=== PATIENT | female | born 1990 | race Two or more races ===

== ENCOUNTER 2016-11-21 10:55 | Outpatient (CLI) | payer MEDICAID ==
[2016-11-21 11:37] VITALS: BMI 31.1
[2016-11-21 12:03] LABS: SPECIFIC GRAVITY 1.015 (1.001-1.030); URINE BILIRUBIN NEGATIVE (NEGATIVE); URINE BLOOD 4+ (NEGATIVE); URINE GLUCOSE (UA) NEGATIVE (NEGATIVE); URINE LEUKOCYTE ESTERASE 2+ (NEGATIVE); URINE NITRITE NEGATIVE (NEGATIVE); URINE PROTEIN 1+ (NEGATIVE); URINE UROBILINOGEN NORMAL (0-1 mg/dl)
[2016-11-21 12:08] LABS: URINE APPEARANCE HAZY; URINE COLOR YELLOW
[2016-11-21 12:11] LABS: URINE AMORPHOUS SEDIMENT 3+; URINE BACTERIA 3+; URINE EPITHELIAL CELLS 20-30 /hpf
[2016-11-21] MEDS ORDERED: LIDOCAINE 1% IM SCH ×2 (13:00)
[2016-11-21] MEDS ORDERED: CEFTRIAXONE 1 GM IM SCH ×2 (13:00)
== END 2016-11-21 13:39 | disposition home or self-care (01) ==
LOC: FBCOUT 10:55 → ED 10:55 → EDSTATUS 11:05 → FBC 11:07 → FBCOUT 11:07
PROVIDERS: ATTEND Family Medicine
DX: O26.899 Other specified pregnancy related conditions, unspecified trimester (principal); M54.9 Dorsalgia, unspecified; R10.9 Unspecified abdominal pain; M25.559 Pain in unspecified hip; Z3A.00 Weeks of gestation of pregnancy not specified
CPT/HCPCS: 96372; 81001; 59050; 81002; J0696; G0463

== ENCOUNTER 2017-01-13 01:23 | Outpatient (CLI) | payer MEDICAID ==
[2017-01-13 01:45] LABS: SPECIFIC GRAVITY 1.015 (1.001-1.030); URINE BILIRUBIN NEGATIVE (NEGATIVE); URINE BLOOD NEGATIVE (NEGATIVE); URINE GLUCOSE (UA) NEGATIVE (NEGATIVE); URINE LEUKOCYTE ESTERASE 2+ (NEGATIVE); URINE NITRITE NEGATIVE (NEGATIVE); URINE PROTEIN NEGATIVE (NEGATIVE); URINE UROBILINOGEN NORMAL (0-1 mg/dl)
[2017-01-13 01:49] LABS: URINE APPEARANCE CLEAR; URINE COLOR YELLOW
[2017-01-13 01:50] LABS: URINE AMORPHOUS SEDIMENT 2+; URINE BACTERIA 2+; URINE EPITHELIAL CELLS MANY /hpf; URINE RBC 0-1 /hpf
[2017-01-13 01:56] VITALS: BMI 25.2
[2017-01-13] MEDS ORDERED: MAGNESIUM HYDROXIDE/AL HYDROX 30 ML UDCUP PO ONE (02:20)
[2017-01-13] MEDS ORDERED: CEFTRIAXONE 1 GM IM ONE ×2 (02:30)
[2017-01-13] MEDS ORDERED: LIDOCAINE 1% IM ONE ×2 (02:30)
[2017-01-13] MEDS ORDERED: CEFTRIAXONE SODIUM 1 G VIAL ONE (02:39)
[2017-01-13 03:10] LABS: URINE BILIRUBIN NEGATIVE (NEGATIVE); URINE BLOOD NEGATIVE (NEGATIVE); URINE GLUCOSE (UA) NEGATIVE (NEGATIVE); URINE LEUKOCYTE ESTERASE NEGATIVE (NEGATIVE); URINE NITRITE NEGATIVE (NEGATIVE); URINE PROTEIN NEGATIVE (NEGATIVE); URINE UROBILINOGEN NORMAL (0-1 mg/dl)
[2017-01-13 03:12] LABS: URINE APPEARANCE CLEAR; URINE COLOR YELLOW
[2017-01-13 03:16] LABS: URINE BACTERIA RARE; URINE EPITHELIAL CELLS FEW /hpf; URINE RBC 0 /hpf; URINE WBC 0-1 /hpf
== END 2017-01-13 03:48 | disposition home or self-care (01) ==
LOC: FBC 01:23 → FBCOUT 01:23
PROVIDERS: ATTEND Family Medicine
DX: O26.899 Other specified pregnancy related conditions, unspecified trimester (principal); R10.13 Epigastric pain; M54.9 Dorsalgia, unspecified; R10.2 Pelvic and perineal pain; Z3A.00 Weeks of gestation of pregnancy not specified
CPT/HCPCS: 81001 ×2; 59025; A9270; J0696; G0463